=== PATIENT | female | born 1965 | race African-American/Black ===

== ENCOUNTER 2020-06-25 14:39 | Observation (INO) | payer OTHER, SELFPAY ==
[2020-06-25] VITALS (9 sets, daily range): BP systolic 109–204; BP diastolic 80–178; PULSE 69–97; RESP 16–22; TEMP 36.3–36.5; O2SAT 95–99; BMI 38.5
--- NOTE | ~2020-06-25 | CT_ITS ---
EXAMINATION: CTA brain carotid EXAM DATE: 06/25/2020 15:59 INDICATION: Dizziness. Hypertension. TECHNIQUE: Noncontrast head CT. Spiral CTA of the carotid arteries was performed with intravenous i njection 100 cc of Omnipaque 350. Axial, coronal, sagittal reformatted images reviewed. Additional r eformatted images created on dedicated 3-D workstation. NASCET comparable standard used to assess th e degree of arterial stenosis. Spiral CT angiogram cerebral arteries performed with the same intrave nous injection of contrast. Source images of the brain CTA transferred to dedicated workstation for 3 -D rotational image creation. Coronal, sagittal maximum intensity pixel images also reviewed. The d ose-length product (DLP) for this examination was 1626.55 mGy-cm. The exposure was tailored accordi ng to patient size, and iterative reconstruction (ASIR) was used as additional dose reduction techniq ue. There is no prior study for comparison. FINDINGS: There is tortuosity, some kinking of both internal carotid arteries. There is no focal plaq ue. The right vertebral artery is dominant. There is no carotid or vertebral basilar arterial dissec tion or fibromuscular dysplasia. There are no cerebral artery aneurysms. There is symmetric cerebral artery arborization. The sagittal, transverse and sigmoid sinuses enhance normally, no venous sinus t hrombosis. Internal cerebral veins also enhance normally. There is no acute intraparenchymal hemorrhage. No evidence of intraparenchymal brain mass lesion. N o evidence of acute infarction. There is mild periventricular and subcortical hypodensity, nonspecifi c but probably related to small vessel ischemic disease. There is intracranial carotid arterioscler osis. There is no mass effect or midline shift. There is no obstructive hydrocephalus suspected. T here are no extra-axial collections. There are no calvarial acute fractures. IMPRESSION: 1. No acute cervical or brain findings. No carotid stenosis. 2. Mild microangiopathy. Reviewed, dictated and finalized at location G.
--- NOTE | ~2020-06-25 | XR_ITS ---
EXAMINATION: XR chest 1V portable INDICATION: Dizziness TECHNIQUE: Portable AP chest at 1720 hours COMPARISON: None available FINDINGS: The lungs are free of acute opacities. There is no pleural effusion or pneumothorax. The ca rdiomediastinal silhouette is normal. IMPRESSION: 1. No acute cardiopulmonary abnormality. Reviewed, dictated and finalized at location A.
--- NOTE | ~2020-06-25 | MR_ITS ---
EXAMINATION: MR brain/brain stem wo con EXAM DATE: 06/26/2020 09:35 INDICATION: Vertigo, severe hypertension. TECHNIQUE: Magnetic resonance imaging (MRI) of the brain/brain stem obtained without contrast. Sagitt al T1, axial diffusion, gradient echo (T2*), T1, T2, FLAIR sequences obtained. There is no prior st udy for comparison. FINDINGS: There are multiple periventricular T2/FLAIR signal hyperintensities with some regions of co nfluence, some possibly involving margins of the corpus callosum with Yepez's finger orientation. Po ssible multiple sclerosis with differential diagnosis including premature chronic small vessel ischem ic disease (especially if the patient has cardiovascular risk factors), migraine headaches, acute dis seminated encephalomyelitis (ADEM), vasculopathy, lyme's disease or reactive astrocytosis (gliosis) s econdary to nonspecific etiology. No posterior fossa signal abnormalities. There are no areas of restricted diffusion to suggest acute infarction. There is no acute hemorrhage seen on the T2*, a hemosiderin sensitive sequence. No intraparenchymal brain mass. The ventricles a re normal in size. There are no extra-axial collections. Flow voids are seen in the cerebral arteri es on the T2-weighted sequences consistent with their expected patency. The orbits are unremarkable. Soft tissue is unremarkable. IMPRESSION: Scattered periventricular signal abnormalities, possible multiple sclerosis with some oth er differential considerations listed above. No acute findings. Reviewed, dictated and finalized at location B. IMPRESSION: Scattered periventricular signal abnormalities, possible multiple s clerosis with some other differential considerations listed above. No acute fin dings.
--- NOTE | ~2020-06-25 | US_ITS ---
EXAMINATION: US carotid duplex BI DATE: 06/26/2020 09:46 INDICATION: Vertigo TECHNIQUE: Grayscale, color Doppler, and pulsed Doppler images of the cervical carotid arteries were obtained. The degree of vessel stenosis is placed in one of the following categories: normal, <50%, 5 0-69%, >=70% but less than near-occlusion, near-occlusion, or total occlusion. Note that percent sten osis relative to normal distal artery lumen diameter is indirectly measured from velocity measurement s as described by Anthony, et al. Radiology 2003; 229:340-346. Notes: Normal: Peak systolic velocity <125 centimeters/sec and no plaque <50%. Peak systolic velocity <125 ( EDV <40; ICA/CCA PSV ratio <2.0; used these factors only a tandem lesions or low cardiac output or co ntralateral disease) 50-69 %: PSV 125-230 (EDV 40-100; ratio 2-4) >= 70% but less than near occlusion: PSV greater than 230 (EDV > 100; ratio> 4.0) Near Occlusion: PSV that is variable; markedly narrowed lumen Occlusion: Absent flow on color/spectral Doppler and no lumen on weiss scale. COMPARISON: None. FINDINGS: RIGHT: The right common carotid artery (CCA) peak systolic velocity (PSV) is 53 cm/s. The right internal car otid artery (ICA) PSV is 35 cm/s. The right ICA end-diastolic velocity (EDV) is 7 cm/s. The right ICA /CCA PSV ratio is 0.7. The external carotid artery (ECA) PSV is 66 cm/s. There is antegrade flow in t he right vertebral artery. LEFT: The left CCA PSV is 68 cm/s. The left ICA PSV is 38 cm/s. The left ICA EDV is 11 cm/s. The left ICA/C CA PSV ratio is 0.6. The ECA PSV is 48 cm/s. There is antegrade flow in the left vertebral artery. IMPRESSION: 1. Less than 50% stenosis in the right internal carotid artery by sonographic criteria. 2. Less than 50% stenosis in the left internal carotid artery by sonographic criteria. Reviewed, dictated and finalized at location A. IMPRESSION: 1. Less than 50% stenosis in the right internal carotid artery by sonographic rashida ibarra. 2. Less than 50% stenosis in the left internal carotid artery by sonographic marimar renteria.
--- NOTE | 2020-06-25 14:44 | ECG_ITS ---
Measurements Intervals [place] Rate: 73 P: 65 SD: 214 QRS: -1 QRSD: 104 T: 30 QT: 405 QTc: 447 Interpretive Statements SINUS RHYTHM WITH FIRST DEGREE AV BLOCK VOLTAGE CRIERIA FOR LVH BORDERLINE R WAVE PROGRESSION, ANTERIOR LEADS BASELINE WANDER- V4-V6 ABNORMAL ECG Electronically Signed On 06-25-2020 19:43:12 CDT by Bill Huang D.O.
--- NOTE | 2020-06-25 14:52 | ED.GENADULT ---
HPI - General Adult General Chief complaint: Nausea/Vomiting/Diarrhea Stated complaint: DIZZY/LIGHTHEADED/EMESIS Time Seen by Provider: 06/25/20 14:41 Source: patient History of Present Illness HPI narrative: Patient is a 55 y/o female complaining of dizziness starting 1:50 PM while she was sitting there eating. She states that her dizziness is severe and she had to hold on to the wall to walk. She describes her dizziness as light-headedness with no room spinning sensation. There is no alleviating and exacerbating factor. She has nausea and vomiting. She has no headache, focal weakness/numbness or speech difficulty. Related Data Allergies Allergy/AdvReac Type Severity Reaction Status Date / Time No Known Allergies Allergy Verified 06/25/20 14:48 Review of Systems Constitutional: Constitutional: Denies chills, Denies fever(s), Denies headache(s) and Denies weakness Eyes: Eyes: Denies blurry vision ENT: Denies headache(s) and Denies neck pain Cardiovascular: Cardiovascular: Denies chest pain and Denies dyspnea Respiratory: Respiratory: Denies cough and Denies dyspnea Gastrointestinal: Gastrointestinal: Denies abdominal pain, Denies diarrhea, Reports nausea and Reports vomiting Genitourinary: Genitourinary: Denies hematuria and Denies dysuria Musculoskeletal: Musculoskeletal: Denies back pain and Denies neck pain Neurologic: Reports dizziness, Denies headache(s) and Denies weakness [facility] Social History Social History Gender identity (if verbalized by the patient): Female Exam Const: General: no acute distress and well developed Orientation/consciousness: oriented to person, oriented to place, oriented to time and patient oriented x3 HENMT: Head: normocephalic Ears: external ears normal General nose exam: Normal external nose present Eyes: General: appearance normal, both eyes and all related structures Conjunctivae: conjunctivae normal Neck: Neck: normal visual inspection and full ROM Chest: Chest palpation & inspection: normal inspection of the chest and no tenderness Resp: Effort & Inspection: normal respiratory effort Auscultation: clear to auscultation bilaterally Cardio: Rate: regular rate Rhythm: regular rhythm GI: GI Palp: No abdominal tenderness and Yes Soft to palpation Skin: General skin exam: normal color, turgor normal and other (+diaphoresis) Neuro: General: oriented to person, oriented to place, oriented to time and patient oriented x3 Cranial nerves: Yes CN's II-XII intact bilaterally Cognition (Neuro): normal cognition Speech: normal speech Motor exam (neuro): 5/5 motor strength present throughout Sensory Exam: normal sensation Coordination: [id number]-[id number]-renc test normal and [id number]-[id number] test normal Extrem: General: normal to inspection, full ROM and no pedal edema Psych: Appearance: grossly normal Mental Status: mental status grossly normal Affect: normal affect Course Reevaluation(s) Reevaluation #1: Rechecked. Patient states she is still dizzy and has to hold to things to walk. Date: 06/25/20 Time: 18:49 Consultations Consultation #1: Discussed with NIKOLAI Russell, who agrees to admit to Dr. Monge. Date: 06/25/20 Time: 19:13 Vital Signs Vital signs: Vital Signs Temperature 36.5 C 06/25/20 14:44 Pulse Rate 75 06/25/20 14:44 Respiratory Rate 22 H 06/25/20 14:44 Blood Pressure 109/108 H 06/25/20 14:44 Pulse Oximetry 98 06/25/20 14:44 Temperature 36.5 C 06/25/20 14:44 Pulse Rate 69 06/25/20 17:59 Respiratory Rate 18 06/25/20 17:59 Blood Pressure 160/82 H 06/25/20 17:59 Pulse Oximetry 99 06/25/20 17:59 Medical Decision Making MDM Narrative Medical decision making narrative: Stroke is considered as a possible cause for patient's dizziness. However, tPA is not offered because symptoms is mild and NIHSS is 0. Vital Signs Vital Signs: Vital Signs Temperature 36.5 C 06/25/20 14:44 Pulse
[2020-06-25 15:04] LABS: Basophils Absolute Auto 0.1 K/mm3 (0.0-0.1); Basophils Percent Auto 0.6 % (0.2-1.2); Eosinophils Absolute Auto 0.4 K/mm3 (0-0.3); Hematocrit 42.7 % (37.0-47.0); Hemoglobin 13.8 g/dL (12.0-15.0); Immature Granulocyte Absolute 0.07 K/mm3 (0.00-0.031); Immature Granulocyte Percent A 0.5 % (0-0.5); Lymphocytes Absolute Auto 4.07 K/mm3 (0.9-3.2); Mean Corpuscular HGB Conc 32.3 g/dl (32-36); Mean Corpuscular Volume 89.7 fl (80-100); Mean Platelet Volume 12.5 fl (7.4-10.4); Monocytes Absolute Auto 0.6 K/mm3 (0.1-0.6); Monocytes Percent Auto 4.6 % (2.6-8.5); Neutrophils Absolute Auto 7.9 K/mm3 (1.3-6.7); Neutrophils Percent Auto 60.3 % (45.5-73.1); Platelet Count Result 160 k/mm3 (150-375); Red Blood Count 4.76 M/mm3 (4.2-5.4); Red Cell Distribution Width 13.9 % (11.5-14.5); White Blood Count 13.1 K/mm3 (4.5-10.0)
[2020-06-25 15:11] LABS: Atypical Lymphocytes Present; Platelet Estimate Adequate (Adequate)
[2020-06-25 15:12] LABS: Anion Gap 6 mmol/L (8-16); Blood Urea Nitrogen 10 mg/dL (7-17); Calcium 9.9 mg/dL (8.4-10.2); Carbon Dioxide 26 mmol/L (22-30); Chloride 105 mmol/L (98-107); Estimated CRCL calculation 94 ml/min; Estimated Glomerular Filt Rate > 60; Glucose 174 mg/dL (65-105); Potassium 3.6 mmol/L (3.4-5.0); Sodium 137 mmol/L (137-145)
[2020-06-25] MEDS: LABETALOL HCL INJ 100 MG/20 ML VIAL 20 MG IV PUSH (15:22)
[2020-06-25 17:39] LABS: Troponin I < 0.012 ng/mL (0.000-0.034)
[2020-06-25] MEDS: lisinopriL 20 MG TABLET PO (17:57)
[2020-06-25] MEDS: hydroCHLOROthiazide 25 MG TABLET PO (17:57)
[2020-06-25 18:29] LABS: Troponin I < 0.012 ng/mL (0.000-0.034)
--- NOTE | 2020-06-25 20:40 | ADMGEN ---
This patient, Concepcion Fernandes, was admitted to [facility] Surg Room 309-01. Patient/family oriented to hospital policies and general routines including ID bracelet, bed and alarms, visiting hours, pain management, procedures, bathroom and other care routines, personal items, smoking policy, room service/diet, and visiting hours. Valuables list has been completed. Information on how to activate the Rapid Response Team has been discussed. Patient/Family are encouraged to report perceived risks to care and to ask questions if they do not understand what they are told or what they should do.
--- NOTE | 2020-06-25 21:00 | PM.IMHP ---
H&P: HPI History of Present Illness Date/Time: 06/25/20 21:00 Chief complaint: dizziness, hypertension Narrative: Concepcion Fernandes is a 55-year-old female with untreated hypertension who presented to the emergency department earlier today via EMS from home for evaluation of dizziness, nausea, and vomiting. Today while eating lunch she developed acute onset of dizziness, that she further qualifies as vertigo with reports of a spinning sensation and being off balance. Not long thereafter she developed nausea and vomiting. The vertigo was so severe that she called 911 and on their arrival she was quite hypertensive, with systolic blood pressures around 200, reportedly. She received IV labetalol in the emergency department as well as p.o. lisinopril and hydrochlorothiazide with improvement in her blood pressures. She goes on to say that she has not taken medication for her blood pressure since 2014, and she reports being on lisinopril at that time which made her feel bad, including dizziness. Her vertigo has also improved however she continues to have mild nausea. It does not seem to be positional. Additionally she complains of pressure over the maxillary sinuses for the last couple of weeks, with pressure and discomfort in the left upper jaw where she has cracked teeth and dental caries. She denies sensitivity to cold and hot liquids and has no tooth pain with eating. She has not had any significant congestion until today when she began experiencing postnasal drip. No aural fullness or tinnitus. She denies overt headache. No focal weakness or paresthesias. She has not had chest pain or palpitations, but does note occasionally experiencing a racing heart which she attributes to anxiety. She has not had fever, chills, or sweats. No recent travel or sick contacts. No exposure to those positive for COVID-19. She denies cough and shortness of breath. Review of Systems Review of Systems: Narrative: Twelve systems were reviewed with pertinent positives and negatives as per HPI. No syncope. She denies head trauma. No tinnitus or hearing changes. She denies visual changes. No cough or shortness of breath. No history of sleep apnea but she does snore and occasionally wakes up at night feeling short of breath. She denies daytime somnolence. She has never been told of apneic episodes while she is sleeping. She had a loose stool today but has been moving her bowels regularly before that. No urine symptoms. No history of cardiac dysrhythmia. No venous thromboembolism. Except as documented, all other systems were reviewed and are negative. [facility] Past Medical History Medical History (Updated 06/25/20 @ 23:46 by Yvonne Rivera PA-C) Hypertension Tobacco abuse Surgical History Surgical History (Updated 06/25/20 @ 23:42 by Yvonne Rivera PA-C) History of cholecystectomy History of tubal ligation (~1992) Family History Family History (Updated 06/25/20 @ 23:42 by Yvonne Rivera PA-C) Mother Leukemia Social History Social History (Updated 06/25/20 @ 23:44 by Yvonne Rivera PA-C) Social History: The patient lives in [place] with her daughter and son-in-law. She has 4 children, 1 who . 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 She smokes about half a pack of cigarettes a day. No alcohol or illicit substance abuse. She designates her daughter Jeni Malloy as her surrogate decision maker and she wishes to be a full code. Years smoked: 15 Tobacco type: cigarettes Alcohol intake: never Substance use: never Gender identity (if verbalized by the patient): Female Spiritual care concerns: No Meds Home Medications and Allergies Home Medications Medication Instructions Recorded Confirmed Type acetaminophen [Tylenol] 650 mg PO Q12H PRN 06/25/20 06/25/20 History lisinopril-hydrochlorothiazide 1 tablet PO DAILY #30 tablet 06/25/20 Rx [Zesto
[2020-06-25 21:38] LABS: Troponin I < 0.012 ng/mL (0.000-0.034)
[2020-06-26] VITALS (7 sets, daily range): BP systolic 139–173; BP diastolic 54–91; PULSE 68–80; RESP 18–20; TEMP 36.6–37.1; O2SAT 94–97
[2020-06-26] MEDS: ACETAMINOPHEN 325 MG TABLET 650 MG PO ×2 (01:35→12:17)
[2020-06-26] MEDS: AMPICILLIN SULB 1.5 GM/NS 50ML 1.5 GM/50 ML VIAL IVPB ×3 (01:42→12:16)
[2020-06-26 05:34] LABS: Basophils Percent Auto 0.4 % (0.2-1.2); Eosinophils Absolute Auto 0.1 K/mm3 (0-0.3); Eosinophils Percent Auto 1.3 % (0-4.4); Hematocrit 42.2 % (37.0-47.0); Hemoglobin 13.6 g/dL (12.0-15.0); Immature Granulocyte Absolute 0.02 K/mm3 (0.00-0.031); Immature Granulocyte Percent A 0.2 % (0-0.5); Mean Corpuscular HGB Conc 32.2 g/dl (32-36); Mean Corpuscular Hemoglobin 29.2 pg (26-34); Mean Corpuscular Volume 90.6 fl (80-100); Mean Platelet Volume 12.7 fl (7.4-10.4); Monocytes Absolute Auto 0.8 K/mm3 (0.1-0.6); Monocytes Percent Auto 8.1 % (2.6-8.5); Neutrophils Absolute Auto 5.7 K/mm3 (1.3-6.7); Platelet Count Result 153 k/mm3 (150-375); Red Blood Count 4.66 M/mm3 (4.2-5.4)
[2020-06-26 05:42] LABS: Hemoglobin A1C 5.6 % (<5.7)
[2020-06-26 05:44] LABS: Alanine Aminotransferase 11 U/L (4-35); Alkaline Phosphatase 61 U/L (38-126); Anion Gap 4 mmol/L (8-16); Aspartate Amino Transferase 17 U/L (14-36); Bilirubin,Total 0.3 mg/dL (0.2-1.3); Blood Urea Nitrogen 12 mg/dL (7-17); Calcium 10.2 mg/dL (8.4-10.2); Carbon Dioxide 32 mmol/L (22-30); Chloride 103 mmol/L (98-107); Estimated CRCL calculation 62 ml/min; Estimated Glomerular Filt Rate > 60; Glucose 111 mg/dL (65-105); Magnesium 2.1 mg/dL (1.6-2.3); Potassium 3.9 mmol/L (3.4-5.0); Sodium 139 mmol/L (137-145)
[2020-06-26 06:27] LABS: Thyroid Stimulating Hormone Reflex 0.948 uIU/mL (0.465-4.68)
[2020-06-26] MEDS: amLODIPine BESYLATE 5 MG TABLET 10 MG PO (10:25)
[2020-06-26] MEDS: hydroCHLOROthiazide 25 MG TABLET PO (10:25)
--- NOTE | 2020-06-26 13:16 | WPDNEURCNPN ---
Assessment and Plan Assessment and plan (1) Tobacco abuse: Code(s): Z72.0 - Tobacco use Status: Acute (2) Suspected sleep apnea: Code(s): R29.818 - Other symptoms and signs involving the nervous system Status: Acute (3) Hyperglycemia: Code(s): R73.9 - Hyperglycemia, unspecified Status: Acute (4) Vertigo: Code(s): R42 - Dizziness and giddiness Status: Acute (5) Uncontrolled hypertension: Code(s): I10 - Essential (primary) hypertension Status: Acute (6) Dizziness: Code(s): R42 - Dizziness and giddiness Status: Acute Additional Plan I got into her history and the nothing in her history in the past or even early years of her life to suggest any neurological event in particular there is no history of optic neuritis no history of acute vertigo no history of lateralizing paresthesias or weakness bladder or bowel dysfunction or anything to suggest an acute neurological event suggestive of multiple sclerosis likewise the family history is also totally unremarkable for any diagnosis of multiple sclerosis and she is 1 of the 9 and she is not aware of any of them having that she has been noncompliant however in taking her medication for the blood pressure which she has had for some time and is not taking care of her I suspect the MRI findings are most likely related to longstanding hypertension with the microvascular disease at this point I had recommended that she should have a brain MRI with contrast when she gets discharged because she wants to go home and she should have a primary care physician who can control her high blood pressure and option for doing a spinal tap were discussed with her she clearly not interested in it and would like to follow up with the brain MRI with contrast which will be appropriate to see if any of the lesions might enhance to suggest an active a [employer] inflammation however on the other hand clinically she does not seem to [employer] infection either viral rickettsial or bacteria All option risk in the benefits were discussed she was told not to drive at least several days in case the vertigo do reoccur Consult date: 06/26/20 Time Seen: 13:00 HPI: Concepcion Fernandes is a 55 year old female She is right-handed I am consulted for the evaluation of abnormal brain MRI which shows nonspecific findings the patient was primary admitted due to acute episode of acute vertigo which is completely resolved it was not associated with any headache however she did throw up later on she denied having had any lateralizing paresthesias focal weakness chest pain shortness of breath and she is feeling fine and wants to go home Review of Systems Review of Systems: All systems reviewed & are unremarkable except as noted in HPI and below PMFSH Past Medical History Medical History Hypertension Tobacco abuse Surgical History Surgical History History of cholecystectomy History of tubal ligation (~1992) Family History Family History Mother Leukemia Social History Social History Social History: The patient lives in [place] with her daughter and son-in-law. She has 4 children, 1 who . 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 She smokes about half a pack of cigarettes a day. No alcohol or illicit substance abuse. She designates her daughter Jeni Malloy as her surrogate decision maker and she wishes to be a full code. Years smoked: 15 Tobacco type: cigarettes Alcohol intake: never Substance use: never Gender identity (if verbalized by the patient): Female Spiritual care concerns: No Meds Home Medications and Allergies Home Medications Medication Instructions Recorded Confirmed Type
--- NOTE | 2020-06-26 13:35 | PM.DS ---
DS: Admitting Diagnosis Admitting Diagnosis Admitting Diagnosis: dizziness, hypertension DS: Discharge Diagnosis Discharge Diagnosis (1) Vertigo: Code(s): R42 - Dizziness and giddiness Status: Acute Assessment and Plan: Date of Admission: 06/25/20 Date of Discharge/DOS: 06/26/20 Ms. Fernandes is a pleasant 55yo F with history of hypertension who presented to the ED for evaluation of sudden onset dizziness. She described she had been sitting down in a chair and when she stood up, she suddenly became very dizzy, felt like the room was spinning, and had to hold on to the renee and furniture to ambulate. This dizziness resulted in nausea and vomiting as well. BP was markedly elevated on arrival with systolic pressures up to 200. Patient describes that once she was given blood pressure medicine here, her symptoms resolved. This morning, she feels normal and back to her baseline. She described she had never experienced symptoms like this in the past. She noted she used to take lisinopril about 5 years ago but stopped taking the medication because it made her feel bad. Elevated BPs were treated with labetolol, HCTZ, and lisinopril in the ED. On the floor she was started on oral amlodipine and HCTZ. Blood pressures were much improved and stable at discharge. Head/neck CTA showed mild microangiopathy without acute cervical or intracranial abnormalities, no carotid stenosis. MRI brain showed scattered periventricular signal abnormalities without acute findings. Radiologist mentioned several differentials to explain these findings including possible multiple sclerosis, premature chronic small vessel ischemic disease (especially if the patient has cardiovascular risk factors), migraine headaches, acute disseminated encephalomyelitis (ADEM), vasculopathy, lyme's disease or reactive astrocytosis (gliosis) secondary to nonspecific etiology. Given the patient's markedly elevated blood pressure and tobacco use and quick resolution of symptoms, it is certainly possible that these nonspecific findings represent small vessel ischemia. Her symptoms may have been related to her elevated pressures vs. vertigo. She was also noted to have multiple cracked teeth and dental caries. She had tenderness to palpation of sinuses. She was started on IV unasyn and transitioned to oral Augmentin at discharge for possible infection in the event this contributed to her dizziness. Neurology was consulted due to these findings. She will follow up with Dr Francis outpatient for further workup with MRI spine outpatient. She is hemodynamically stable for discharge 06/26/20 with plans to establish with PCP and to follow up with Dr Francis, return to ED for any further worrisome symptoms. (2) Uncontrolled hypertension: Code(s): I10 - Essential (primary) hypertension Status: Acute Assessment and Plan: BP as high as 204/178 on arrival. She was treated with HCTZ, lisinopril, and IV labetolol in ED. She was started on oral amlodipine and HCTZ, continued at discharge. She was encouraged to establish with a PCP as soon as possible for management of hypertension. (3) Leukocytosis: Code(s): D72.829 - Elevated white blood cell count, unspecified Status: Acute Assessment and Plan: Mild and resolved day of discharge, may have been related to stress reaction. (4) Hyperglycemia: Code(s): R73.9 - Hyperglycemia, unspecified Status: Acute Assessment and Plan: A1c 5.6. (5) Suspected sleep apnea: Code(s): R29.818 - Other symptoms and signs involving the nervous system Status: Acute Assessment and Plan: Apnea link not able to be performed, follow up with PCP. (6) Tobacco abuse: Code(s): Z72.0 - Toba
--- NOTE | 2020-06-26 23:52 | ECHO_ITS ---
Patient Info Name: Concepcion Fernandes Age: 55 years : 1965 Gender: Female Ht: 60 in Wt: 197 lbs BSA: 1.99 m2 HR: 71 bpm BP: 142 / 71 mmHg Heart Rhythm: Sinus Rhythm Technical Quality: Good Exam Date: 06/26/2020 1:34 PM Exam Location: [facility] Pul[facility] Patient Status: Outpatient Admit Date: 06/25/2020 Staff Ordering Physician: Yvonne Rivera PA-C [employer] Press Operator: Yandel Orourke RDCS, RT Attending Provider: Ariela Monge DO Referring Physician: Nicole DU; Exam Type: CA echo doppler color flow Study Info Indications I11.0 - Hypertensive heart disease with heart failure Complete two-dimensional, color flow and Doppler transthoracic echocardiogram is performed. Strain analysis performed. Summary 1. Complete two-dimensional, color flow and Doppler transthoracic echocardiogram is performed. 2. Strain analysis performed. 3. Left ventricular chamber dimension is normal. 4. Left ventricular systolic function is hyperdynamic, estimated at >70%. 5. There is severely increased left ventricular wall thickness. 6. Left ventricular septal wall motion is normal. 7. The left ventricular diastolic function is grade I diastolic dysfunction. 8. Global longitudinal strain is abnormal at -15 %. 9. Left atrial chamber dimension is mildly enlarged. 10. There is mild mitral valve regurgitation. Left Ventricle Left ventricular chamber dimension is normal. Left ventricular systolic function is hyperdynamic, estimated at >70%. There is severely increased left ventricular wall thickness. Left ventricular septal wall motion is normal. The left ventricular diastolic function is grade I diastolic dysfunction. Global longitudinal strain is abnormal at -15 %. Right Ventricle Right ventricular chamber dimension is normal. Right ventricular systolic function is normal. Left Atria Left atrial chamber dimension is mildly enlarged. Right Atria Right atrial chamber dimension is normal. Atrial Septum Intact interatrial septum visualized by color flow imaging. Aortic Valve The aortic valve is trileaflet. There is mild aortic valve sclerosis. There is no aortic valve stenosis. There is trace aortic valve regurgitation. Pulmonic Valve The pulmonic valve is normal. There is no pulmonic valve stenosis. There is trace pulmonic regurgitation. Mitral Valve The mitral valve has normal leaflets. There is no mitral valve stenosis. There is mild mitral valve regurgitation. Tricuspid Valve The tricuspid valve leaflets are normal. There is no significant tricuspid valve stenosis. There is trace tricuspid valve regurgitation. Pericardium/Pleural The pericardium appears normal. There is no pericardial effusion. Inferior Vena Cava Normal inferior vena cava with >50% collapse upon inspiration consistent with normal right atrial pressure, 5 mmHg. Aorta The aortic root size at the sinus of Valsalva is normal. Left Ventricular Outflow Tract Name Value Normal LVOT 2D LVOT Diameter 2.0 cm LVOT Doppler LVOT Peak Gradient 6 mmHg LVOT Mean Gradient 3 m
== END 2020-06-26 15:05 | disposition home or self-care (01) ==
LOC: ANHED 19:19 → ANH3MEDSUR 21:37
PROVIDERS: Physician Assistant; Admitting Provider Internal Medicine; Emergency Provider Emergency Medicine; Visit Provider Family Medicine
DX: R42 Dizziness and giddiness (principal); I10 Essential (primary) hypertension; K02.9 Dental caries, unspecified; K03.81 Cracked tooth; F17.210 Nicotine dependence, cigarettes, uncomplicated; D72.829 Elevated white blood cell count, unspecified; R73.9 Hyperglycemia, unspecified; R29.818 Other symptoms and signs involving the nervous system; R93.89 Abnormal findings on diagnostic imaging of other specified body structures
CPT/HCPCS: 36415; 70496; 70498; 70551; 71045; 80048; 80053; 83036; 83735; 84443; 84484; 85025; 93005; 93306; 93880; 96365; 96366; 96374; 99285; A9270; G0378; G0379; J0295; Q9967

== ENCOUNTER 2021-04-30 02:30 | Emergency (ER) | payer OTHER, SELFPAY ==
[2021-04-30 02:39] VITALS: BP 168/95; PULSE 82; RESP 17; TEMP 37; O2SAT 99
--- NOTE | 2021-04-30 02:49 | ED.DIZZY ---
HPI - Dizziness General Chief Complaint: Dizziness Stated Complaint: Ear Time Seen by Provider: 04/30/21 02:49 History of Present Illness HPI Narrative: 56 yo female w/ h/o htn presents to the ED for dizziness. She reports pressure in the left ear and cheek since yesterday. Awoke thismorning around 2 AM feeling like the room was spinning. this was associated with nausea. She has never had this before. Related Data Home Medications Medication Instructions Recorded Confirmed acetaminophen [Tylenol] 650 mg PO Q12H PRN 06/25/20 06/25/20 Allergies Allergy/AdvReac Type Severity Reaction Status Date / Time No Known Allergies Allergy Verified 04/30/21 02:47 Review of Systems Constitutional: Constitutional: Denies chills and Denies fever(s) ENT: Reports nasal congestion and Denies sore throat Cardiovascular: Cardiovascular: Denies chest pain Respiratory: Respiratory: Denies dyspnea Gastrointestinal: Gastrointestinal: Reports nausea Musculoskeletal: Musculoskeletal: Denies back pain Neurologic: Denies numbness and Denies weakness [facility] Past Medical History Medical History (Updated 04/30/21 @ 05:50 by Anthony Connor MD) Hypertension Tobacco abuse Surgical History Surgical History History of cholecystectomy History of tubal ligation (~1992) Family History Family History Mother Leukemia Social History Social History Social History: The patient lives in [place] with her daughter and son-in-law. She has 4 children, 1 who . 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 She smokes about half a pack of cigarettes a day. No alcohol or illicit substance abuse. She designates her daughter Jeni Malloy as her surrogate decision maker and she wishes to be a full code. Years smoked: 15 Tobacco type: cigarettes Alcohol intake: never Substance use: never Gender identity (if verbalized by the patient): Female Spiritual care concerns: No Exam Const: General: no acute distress and alert Orientation/consciousness: patient oriented x3 HENMT: Head: normal to inspection Ears: TM's normal bilaterally Face and sinus: sinus tenderness maxillary (left) Eyes: Pupils: Equal, round and reactive pupils present EOM: EOMs intact bilaterally Neck: Neck: normal visual inspection Resp: Effort & Inspection: normal respiratory effort Auscultation: clear to auscultation bilaterally Cardio: Rate: regular rate Rhythm: regular rhythm Skin: General skin exam: normal color Neuro: General: patient oriented x3, moves all extremities and no focal motor deficits Speech: normal speech Extrem: General: normal to inspection Course Vital Signs Vital signs: Vital Signs Temperature 37.0 C 04/30/21 02:39 Pulse Rate 82 04/30/21 02:39 Respiratory Rate 17 04/30/21 02:39 Blood Pressure 168/95 H 04/30/21 02:39 Pulse Oximetry 99 04/30/21 02:39 Temperature 37.0 C 04/30/21 02:39 Pulse Rate 74 04/30/21 04:27 Respiratory Rate 17 04/30/21 04:27 Blood Pressure 164/93 H 04/30/21 04:27 Pulse Oximetry 97 04/30/21 04:27 MDM - Dizziness MDM Narrative Medical decision making narrative: Feeling better with symptomatic treatment. Differential Diagnosis Differential diagnosis: Likely benign paroxysmal positional vertigo and acute vestibular neuronitis Medical Records Attestation: I reviewed the patient's medical records. Discharge Plan Discharge Clinical Impression: Benign paroxysmal positional vertigo Patient Disposition: Home, Self-Care Condition: Stable Instructions: Vertigo (ED) Prescriptions: New meclizine 25 mg tablet 25 mg PO TID PRN (Reason: dizziness) Qty: 20 RF: 0 No Action acetaminophen [Tylenol] 325 mg Table
[2021-04-30] MEDS: KETOROLAC 30 MG/ML VIAL (*BKC) IV PUSH (03:43)
[2021-04-30] MEDS: MECLIZINE HCL 25 MG TABLET PO (03:54)
[2021-04-30] MEDS: DEXAMETHASONE SOD PHOS INJ 4 MG/ML VIAL 10 MG IM (03:54)
[2021-04-30 04:27] VITALS: BP 164/93; PULSE 74; RESP 17; O2SAT 97
--- NOTE | 2021-04-30 04:30 | PC.NURSE ---
Pt reports dizziness has improved since medication administration.
[2021-04-30 06:38] VITALS: BP 161/87; PULSE 79; RESP 16; O2SAT 99
== END 2021-04-30 06:40 | disposition home or self-care (01) ==
PROVIDERS: Emergency Provider Emergency Medicine
DX: H81.10 Benign paroxysmal vertigo, unspecified ear (principal); I10 Essential (primary) hypertension; F17.210 Nicotine dependence, cigarettes, uncomplicated
CPT/HCPCS: 96372; 96374; 99284; A9270; J1100; J1885